=== PATIENT | female | born 1990 | race Two or more races ===

== ENCOUNTER 2024-09-08 12:02 | Emergency (ER) | payer MEDICAID, OTHER ==
[~2024-09-08] VITALS: Ht 157.5 cm; Wt 81.6 kg
[2024-09-08 12:41] LABS: BASOPHILS % (AUTO) 0.5 % (0.0-2.0); MEAN CORPUSCULAR HGB CONC 33 g/dl (31.0-36.0)
[2024-09-08 13:29] LABS: HEMOGLOBIN 14.1 g/dL (11.5-14.8); RED BLOOD CELL COUNT(AUTO) 4.97 MIL/uL (4.0-5.2)
[2024-09-08] MEDS ORDERED: MAG HYDROX/AL HYDROX/SIMETH 30 ML UDC ONE (13:29)
[2024-09-08] MEDS ORDERED: FAMOTIDINE/PF INJ 20 MG/2 ML VIAL IV ONE (13:29)
[2024-09-08] MEDS ORDERED: LIDOCAINE VISCOUS 2% UD 15 ML UDC ONE (13:29)
[2024-09-08 13:30] LABS: EOSINOPHILS # (AUTO) 0.2 K/uL (0.0-0.7); EOSINOPHILS % (AUTO) 3.4 % (0.0-6.0); HEMATOCRIT 43 % (33-45); LYMPHOCYTES # (AUTO) 2.9 K/uL (0.8-4.8); MEAN CORPUSCULAR HEMOGLOBIN 28 PG (26.0-33.0); MEAN CORPUSCULAR VOLUME 86 fL (82-100); MONOCYTES # (AUTO) 0.4 K/uL (0.1-1.30); MONOCYTES % (AUTO) 6.3 % (2.0-12.0); NEUTROPHILS # (AUTO) 3.4 K/uL (1.8-8.9); NEUTROPHILS % (AUTO) 48.8 % (43.0-81.0); PLATELET COUNT (AUTO) 311 K/uL (150-450); RED CELL DISTRIBUTION WIDTH 14.1 % (11.5-15.0)
[2024-09-08] MEDS: LIDOCAINE VISCOUS 2% UD 15 ML UDC MM ONE (13:30)
[2024-09-08] MEDS: MAG HYDROX/AL HYDROX/SIMETH 30 ML UDC PO ONE (13:30)
[2024-09-08] MEDS: FAMOTIDINE/PF INJ 20 MG/2 ML VIAL IV ONE (13:30)
[2024-09-08 13:38] LABS: CALCIUM, SERUM 8.9 mg/dL (8.5-10.1); CREATININE 0.6 mg/dL (0.6-1.3); POTASSIUM 3.9 mmol/L (3.5-5.1)
[2024-09-08] MEDS ORDERED: FAMO20TA8 PO (14:16)
[2024-09-08 14:35] VITALS: BP 123/88; TEMP 208.8; O2SAT 98
== END 2024-09-08 14:35 | disposition home or self-care (01) ==
LOC: ER 12:02
DX: K21.9 Gastro-esophageal reflux disease without esophagitis (principal); R07.1 Chest pain on breathing; F12.10 Cannabis abuse, uncomplicated; R05.9 Cough, unspecified; Z88.0 Allergy status to penicillin
CPT/HCPCS: 99285; 96374; 71045; 93005; 85025; 80048; 36415; 84484; J3490

== ENCOUNTER 2024-09-30 11:44 | Emergency (ER) | payer OTHER ==
[~2024-09-30] VITALS: Ht 160 cm; Wt 81.6 kg
[~2024-09-30 11:44] MED LIST: FAMO20TA8 PO
[2024-09-30] MEDS ORDERED: ONDANSETRON HCL/PF 4 MG/2 ML VIAL ONE (12:21)
[2024-09-30] MEDS ORDERED: ONDA4TAB11 PO (12:26)
[2024-09-30] MEDS: IV NS 0.9% 1,000 ML BAG IV ONE (12:42)
[2024-09-30] MEDS: ONDANSETRON HCL/PF 4 MG/2 ML VIAL IVP ONE (12:43)
[2024-09-30 14:50] VITALS: BP 108/70; TEMP 97.9; O2SAT 98
== END 2024-09-30 14:51 | disposition home or self-care (01) ==
LOC: ER 11:49
DX: R11.2 Nausea with vomiting, unspecified (principal); B34.9 Viral infection, unspecified; R10.9 Unspecified abdominal pain; R43.9 Unspecified disturbances of smell and taste; F19.10 Other psychoactive substance abuse, uncomplicated; Z88.0 Allergy status to penicillin
CPT/HCPCS: 99285; 96374; 96361; 84703; J2405; J7030